=== PATIENT | male | born 1975 ===

== ENCOUNTER 2018-05-06 03:10 | Emergency (ER) | payer SELFPAY ==
[2018-05-06] MEDS ORDERED: Bacitracin 500 Units/gm Oint Foilpak UD ONE (03:46)
--- NOTE | 2018-05-06 04:32 | C.PDOC ---
History Of Present Illness 43 year old male is brought to the ED by Police for evaluation and medical clearance for incarceration. As per Police patient jumped [place] a [employer] train into the gravel. Patient is c/o left shoulder pain and abrasion to the soles of his feet. Patient denies LOC, visual changes, neck pain, CP, SOB, weakness, numbness , drug or alcohol abuse. Chief Complaint (Nursing): Upper Extremity Problem/Injury History Per: Patient, Other (POlice) History/Exam Limitations: no limitations Onset/Duration Of Symptoms: Hrs Current Symptoms Are (Timing): Still Present Quality: "Pain" Recent travel outside of the [place]: No Additional History Per: Patient Past Medical History Reviewed: Historical Data, Nursing Documentation, Vital Signs Vital Signs: Last Vital Signs Temp 98.4 F 05/06/18 03:17 Pulse 91 H 05/06/18 03:17 Resp 22 05/06/18 03:17 BP 137/93 H 05/06/18 03:17 Pulse Ox 97 05/06/18 04:33 - Medical History PMH: No Chronic Diseases Surgical History: No Surg Hx Family History: States: Unknown Family Hx - Social History Hx Alcohol Use: No Hx Substance Use: No Review Of Systems Constitutional: Negative for: Fever, Chills Cardiovascular: Negative for: Chest Pain, Palpitations Respiratory: Negative for: Cough, Shortness of Breath Musculoskeletal: Positive for: Shoulder Pain, Foot Pain Skin: Negative for: Rash Neurological: Negative for: Weakness, Numbness Physical Exam - Physical Exam Appears: Non-toxic, No Acute Distress Skin: Normal Color, Warm, Dry Head: Atraumatic, Normacephalic Eye(s): bilateral: Normal Inspection Oral Mucosa: Moist Neck: Normal ROM, Supple Chest: Symmetrical Cardiovascular: Rhythm Regular Respiratory: Normal Breath Sounds, No Rales, No Rhonchi, No Wheezing Gastrointestinal/Abdominal: Soft, No Tenderness, No Guarding, No Rebound Extremity: Normal ROM, Tenderness (bilatreal feet anf left shoulder), Capillary Refill (< 2 seconds), No Swelling Pulses: Left Radial: Normal, Right Radial: Normal, Left Dorsalis Pedis: Normal, Right Dorsalis Pedis: Normal Neurological/Psych: Oriented x3, Normal Speech, Normal Motor, Normal Sensation Gait: Steady ED Course And Treatment O2 Sat by Pulse Oximetry: 97 (ON RA) Pulse Ox Interpretation: Normal Medical Decision Making Medical Decision Making: Plan: * left shoulder X-Ray * CT left shoulder * Motrin 600 mg PO Disposition Counseled Patient/Family Regarding: Diagnosis - Disposition Referrals: [facility] [Outside] Disposition: HOME/ ROUTINE Disposition Time: 05:51 Condition: STABLE Additional Instructions: discharge to custody of mounted police officer. Prescriptions: Naproxen [Naprosyn] 1 tab PO BID PRN #25 tab PRN Reason: Pain Instructions: Contusion (DC) Forms: [facility] (Syrian), Gen Discharge Inst Salvadorean Print Language: TELUGU - POA Present On Arrival: None - Clinical Impression Clinical Impression: Contusion, Left shoulder pain - Scribe Statement The provider has reviewed the documentation as recorded by the Scribe Pierce Lemus All medical record entries made by the Scribe were at my direction and personally dictated by me. I have reviewed the chart and agree that the record accurately reflects my personal performance of the history, physical exam, medical decision making, and the department course for this patient. I have also personally directed, reviewed, and agree with the discharge instructions and disposition.
[2018-05-06 06:11] VITALS: BP 120/81; PULSE 77; RESP 16; TEMP 97.9; O2SAT 98
--- NOTE | 2018-05-06 09:48 | RAD ---
Date of service: 05/06/2018 PROCEDURE: Radiographs of the Left Shoulder HISTORY: injury COMPARISON: No prior. FINDINGS: BONES: No acute fracture or destructive bony lesion identified. JOINTS: Normal. Glenohumeral and acromioclavicular joints preserved. No osteoarthritis. SOFT TISSUES: Normal. OTHER FINDINGS: None. IMPRESSION: Unremarkable radiographs of the left shoulder.
--- NOTE | 2018-05-06 09:53 | CT ---
CT left shoulder History: Shoulder injury. Comparison: None available. Technique: Multiple contiguous axial images were performed through the left shoulder without the use of intravenous contrast. Subsequently, sagittal and coronal reformatted images were obtained. Findings: No evidence of acute displaced fracture or dislocation. Glenohumeral and acromioclavicular joint spaces are preserved. Impression: Negative acute. If pain persists, consider MRI. These findings were preliminarily reported at 5:47 a.m. on 05/06/[address] Dav Thapa from [facility].
== END 2018-05-06 06:11 | disposition home or self-care (01) ==
LOC: C.ER 03:10
DX: S40.012A Contusion of left shoulder, initial encounter (principal); X58.XXXA Exposure to other specified factors, initial encounter; Y92.89 Other specified places as the place of occurrence of the external cause; M25.512 Pain in left shoulder